=== PATIENT | female | born 1930 | race Caucasian/White ===

== ENCOUNTER 2016-08-20 12:58 | Outpatient (CLI) ==
[2016-08-20 13:27] LABS: BASOPHILS % (AUTO) 0.6 % (0.0-3.0); EOSINOPHILS # (AUTO) 0.3 K/ul (0.0-0.7); EOSINOPHILS % (AUTO) 3.9 % (0.0-7.0); HEMATOCRIT 40.9 % (37.0-47.0); HEMOGLOBIN 13.8 g/dl (12.0-16.0); IMMATURE GRANULOCYTE % (AUTO) 0.6 % (0.0-5.0); LYMPHOCYTES # (AUTO) 1.5 K/uL (0.60-3.4); MEAN CORPUSCULAR HEMOGLOBIN 30.5 pg (27.0-31.0); MEAN CORPUSCULAR HGB CONC 33.7 (31.8-35.4); MEAN CORPUSCULAR VOLUME 90.3 fl (81.0-99.0); MONOCYTES # (AUTO) 0.5 K/uL (0.4-2.0); MONOCYTES % (AUTO) 7.6 (0-10); NEUTROPHILS # (AUTO) 4.2 K/ul (2.0-6.9); NEUTROPHILS % (AUTO) 64.3; PLATELET COUNT 389 10^3/uL (140-440); RED BLOOD COUNT 4.53 10^6/ul (4.20-5.40); WHITE BLOOD COUNT 6.47 K/ul (4.6-10.2)
--- NOTE | 2016-08-20 13:36 | DI ---
EXAM: PA and lateral views of the chest HISTORY: Cough. COMPARISON: CT chest 06/03/2015 FINDINGS: The cardiomediastinal silhouette is normal. There is no pneumothorax or pleural effusion . There is no consolidation, nodule or mass. The osseous structures are unremarkable. IMPRESSION: No acute cardiopulmonary process
[2016-08-20 13:47] LABS: ALBUMIN 3.6 g/dL (3.4-5.0); ALBUMIN/GLOBULIN RATIO 0.82; ANION GAP 15.1; BILIRUBIN,DIRECT 0.19 mg/dL (0.00-0.30); BILIRUBIN,TOTAL 0.36 mg/dL (0.00-1.20); BUN/CREATININE RATIO 12.5; CALCIUM 10.1 mg/dL (8.2-10.2); CREATININE 0.96 mg/dL (0.60-1.30); PHOSPHORUS 3.7 mg/dL (2.8-4.1); POTASSIUM 4.1 mmol/L (3.5-5.10)
== END 2016-08-20 12:59 | disposition home or self-care (01) ==
LOC: RAD 12:58
PROVIDERS: ATTEND Nurse Practitioner
DX: E03.9 Hypothyroidism, unspecified (principal); R06.02 Shortness of breath; I10 Essential (primary) hypertension; J20.9 Acute bronchitis, unspecified; R05 Cough; R21 Rash and other nonspecific skin eruption; Z87.01 Personal history of pneumonia (recurrent)
CPT/HCPCS: 36415; 80053; 82248; 83880; 84100; 84443; 85025

== ENCOUNTER 2017-07-25 11:17 | Emergency (ER) ==
[2017-07-25 11:37] VITALS: BP 154/108; TEMP 98.1; BMI 26.6
[2017-07-25] MEDS: LIDOCAINE HCL 1% SDV SUBCUT STA (12:20)
[2017-07-25] MEDS: LIDOCAINE HCL 1% SDV ONE (12:21)
--- NOTE | 2017-07-25 13:03 | CT ---
EXAM: CT head without contrast HISTORY: Fall COMPARISON: Same day CT cervical spine TECHNIQUE: Serial axial images of the brain were obtained from the skull base to the vertex without IV contrast. FINDINGS: The ventricles, cisterns and sulci are normal. The maddox-white matter junction is maintain ed. No midline shift or mass is identified. There is no abnormal intra or extra-axial fluid collect ion. The paranasal sinuses and mastoid air cells are clear. The osseous calvarium is intact with hy perostosis frontalis. There are ming on the left scalp with minimal soft tissue injury. IMPRESSION: 1. No acute intracranial abnormality or hemorrhage. 2. [place] [employer] on the posterior left scalp with no underlying fracture or intracranial hemorrhage.
--- NOTE | 2017-07-25 13:06 | CT ---
EXAM: CT of the cervical spine without contrast History: Head and neck trauma. Technique: Multiplanar CT images through the cervical spine were obtained without the administration of IV contrast Findings: The visualized upper lungs are free of consolidation. Visualized airway remains patent. No acute fracture or subluxation of the cervical spine. No prevertebral soft tissue swelling. Prede ntal space is not widened. Reversal of the normal cervical lordosis. Moderate degenerative disc dis ease at C5-6 with endplate sclerosis and osteophyte formation. Bony spinal canal is not significantl y compromised. Multilevel bilateral bony neural foraminal narrowing secondary to uncovertebral and f acet hypertrophy. Impression: No acute osseous abnormality of the cervical spine
--- NOTE | 2017-07-25 13:23 | ED.PDOC ---
General ED Provider: Dr. DENIS LOU Chief Complaint: Fall Stated Complaint: head injury Time Seen by Physician: 11:20 (became dizzy and fell sustained a head lac please see the photos) Mode of Arrival: Wheelchair Information Source: Patient Exam Limitations: No limitations Primary Care Provider: BARBARA ERICKSON Nursing and Triage Documentation Reviewed and Agree: No Reviewed sepsis parameters & appropriate labs ordered?: No System Inflammatory Response Syndrome: Not Applicable Sepsis Protocol: For patient's 13 years and over: Temp is 96.8 and below OR 101 and greater Pulse >90 BPM Resp >20/minute Acutely Altered Mental Status Are patient's symptoms suggestive of a new infection, such as: -Pneumonia -Skin, Soft Tissue -Endocarditis -UTI -Bone, Joint Infection -Implantable Device -Acute Abdominal Infection -Wound Infection -Meningitis -Blood Stream Catheter Infection -Unknown System Inflammatory Response Syndrome: Not Applicable Trauma/Injury Complaint Exam - Head Injury Complaint/Exam Location of Pain: Reports: Scalp Mechanism of Injury: Reports: Trauma Onset/Duration: this am Initial Severity: Mild Current Severity: Mild Character: Reports: Dull Aggravating: Reports: None Alleviating: Reports: None Associated Signs and Symptoms: Denies: Confusion, Memory loss, Seizure, Epistaxis, Dental malocclusion, Neck pain, Nausea, Vomiting Loss of Consciousness: None SDH Risk Factors: Present: Elderly, Recent trauma Cervical Spine Injury Risk Factors: Present: None Related Surgical History: Reports: None Head Injury Findings: Present: Normal findings Glascow Coma Scale (see protocol): 15 Focal Weakness: Present: None Focal Sensory Loss: Present: None Gait: Normal Gag Reflex Present: No Finger to Nose: Normal Rhomberg Test Positive: No Babinski Sign: Negative Right, Negative Left Nexus Low Risk Criteria: No post-midline CS tender, No evidence of intoxicat., No Altered LOC, No focal neuro deficit, No distracting injuries Review of Systems - Review Of Systems Constitutional: Reports: No symptoms Eyes: Reports: No symptoms Ears, Nose, Mouth, Throat: Reports: No symptoms Respiratory: Reports: No symptoms Cardiac: Reports: No symptoms GI: Reports: No symptoms : Reports: No symptoms Musculoskeletal: Reports: No symptoms Skin: Reports: No symptoms Neurological: Reports: No symptoms Endocrine: Reports: No symptoms Hematologic/Lymphatic: Reports: No symptoms All Other Systems: Reviewed and Negative Past Medical History - Past Medical History Previously Healthy: Yes Endocrine: Reports: None Cardiovascular: Reports: Hypertension Respiratory: Reports: None Hematological: Reports: None Gastrointestinal: Reports: None Genitourinary: Reports: None Neuro/Psych: Reports: None Musculoskeletal: Reports: None Cancer: Reports: None Last Menstrual Period: unknown - Surgical History General Surgical History: Reports: None - Family History Family History: Reports: None - Social History Smoking Status: Never smoker Hx Substance Use: No Alcohol Screening: None - Immunizations Tetanus Shot up to Date: Yes (A year at least) Physical Exam - Physical Exam Appearance: Well-appearing, No pain distress, Well-nourished Eyes: GRANT, EOMI, Conjunctiva clear ENT: Ears normal, Nose normal, Oropharynx normal Respiratory: Airway patent, Breath sounds clear, Breath sounds equal, Respirations nonlabored Cardiovascular: RRR, Pulses normal, No rub, No murmur GI/: Soft, Nontender, No masses, Bowel sounds normal, No Organomegaly Musculoskeletal: Normal strength, ROM intact, No edema, No calf tenderness Skin: Warm, Dry (5cm linear laceration), Normal color Neurological: Sensation intact, Motor intact, Reflexes intact, Cranial nerves intact, Alert, Oriented Psychiatric: Affect appropriate, Mood appropriate Interpretation - Radiology Interpretation Radiology Interpretation By: Radiologist Radiology Results: No acute changes Critical Care Note - Critical Care Note Total Time (mins): 0 Course - Course Hematology/Chemistry: 07/25/17 12:30 07/25/17 12:30 Orders, Labs, Meds: Lab Review 07/25/17 07/25/17 12:30 12:30 WBC 8.28 RBC 4.66 Hgb 14.4 Hct 41.8 MCV 89.7 MCH 30.9 MCHC 34.4 RDW Coeff of Donna 13.2 Plt Count 247 Immature Gran % (Auto) 0.4 Neut % (Auto) 70.6 Lymph % (Auto) 21.5 [place] % (Auto) 5.6 Eos % (Auto) 1.4 Baso % (Auto) 0.5 Immature Gran # (Auto) 0.0 Neut # 5.9 Lymph # 1.8 [place] # 0.5 Eos # 0.1 Baso # 0.0 Sodium 137 Potassium 4.5 Chloride 100 Carbon Dioxide 28 Anion Gap 13.5 BUN 12 Creatinine 0.82 Estimated GFR (MDRD) 66.00 BUN/Creatinine Ratio 14.63 Glucose 137 H Calcium 9.8 Total Bilirubin 0.4 AST 26 ALT 23 Alkaline Phosphatase 66 Total Protein 7.4 Albumin 3.7 Globulin 3.7 Albumin/Globulin Ratio 1.00 Orders Category Date Time Status EKG-(ED ONLY) Stat CARDIO 07/25/17 12:19 Ordered CBC W/ AUTO DIFF Stat LAB 07/25/17 12:30 Completed COMPREHENSIVE METABOLIC PANEL Stat LAB 07/25/17 12:30 Completed Lidocaine HCl/Pf [Lidocaine HCl 1% Sdv] MEDS 07/25/17 12:09 Discontinued 5 ml .ROUTE .STK-MED ONE Lidocaine HCl/Pf [Lidocaine HCl 1% Sdv] MEDS 07/25/17 12:08 Discontinued 5 ml SUBCUT ONCE STA CT CERVICAL SPINE W/O CONTRAST Stat RADS 07/25/17 12:[address] HEAD W/O CONTRAST Stat RADS 07/25/17 12:19 Completed Medications Discontinued Medications Generic Name Dose Route Start Last Admin Trade Name Freq PRN Reason Stop Dose Admin Lidocaine HCl 5 ml 07/25/17 12:08 07/25/17 12:20 Lidocaine Hcl 1% Sdv SUBCUT 07/25/17 12:09 5 ml ONCE STA Administration Vital Signs: Temp Pulse Resp BP Pulse Ox 07/25/17 11:18 98.1 F 69 20 154/108 H 97 Departure - Departure Time of Disposition: 13:26 Disposition: HOME SELF-CARE Discharge Problem: Scalp laceration Qualifiers: Encounter type: initial encounter Qualified Code(s): S01.01XA - Laceration without foreign body of scalp, initial encounter Instructions: Head Injury (ED) Condition: Good Pt referred to PMD for follow-up: Yes IPMP verified?: Yes Additional Instructions: Please call your Family Physician as soon as possible to schedule a follow-up appointment. Allergies/Adverse Reactions: Allergies No Known Allergies Allergy (Unverified 07/25/17 11:37) Home Medications: Ambulatory Orders Amoxicillin 500 mg PO Q8HR 07/25/17 Cetirizine HCl [Zyrtec] 10 mg PO DAILY 07/25/17 Levothyroxine Sodium [Synthroid] 75 mcg PO QDAC 07/25/17 Losartan Potassium [Cozaar] 25 mg PO DAILY 07/25/17 Meclizine HCl [Travel Sickness] 25 mg PO BID PRN 07/25/17 Disposition Discussed With: Patient
== END 2017-07-25 14:15 | disposition home or self-care (01) ==
LOC: ED 11:17
DX: S01.01XA Laceration without foreign body of scalp, initial encounter (principal); I10 Essential (primary) hypertension; R42 Dizziness and giddiness; W19.XXXA Unspecified fall, initial encounter
CPT/HCPCS: 36415; 80053; 85025; 93005; 93010; 99283